=== PATIENT | female | born 1960 | race Caucasian/White ===

== ENCOUNTER 2017-09-21 15:01 | Emergency (ER) | payer BC ==
[2017-09-21 16:21] VITALS: BP 92/60
--- NOTE | 2017-09-21 16:46 | UC ---
Skin Complaint HPI - HPI Summary HPI Summary: Pt c/o "bites" on left side of buttocks. Pt states the areas are tender and a little pruritic. - History of Current Complaint Chief Complaint: UCRash Time Seen by Provider: 09/21/17 16:32 Stated Complaint: RASH Hx Obtained From: Patient ?: No Onset/Duration: Gradual Onset, Lasting Days Skin Exposure Onset/Duration: Days Ago Timing: Constant Onset Severity: Mild Current Severity: Mild Location: Discrete - left side buttock Character: Pruritus, Pain Aggravating Factor(s): Touch Alleviating Factor(s): Unknown Associated Signs & Symptoms: Positive: Tenderness - Allergy/Home Medications Allergies/Adverse Reactions: Allergies Allergy/AdvReac Type Severity Reaction Status Date / Time No Known Allergies Allergy Verified 09/21/17 16:09 Home Medications: Home Medications Estradiol TAB(NF) 1 mg PO DAILY 09/21/17 [History Confirmed 09/21/17] Hydrocodone/Acetamin 10325(NF [[place] 10/325 (NF)] 1 tab PO Q6H 09/21/17 [ History Confirmed 09/21/17] Levothyroxine TAB* [Synthroid TAB*] 125 mcg PO DAILY 09/21/17 [History Confirmed 09/21/17] Liothyronine TAB* [Cytomel TAB*] 5 mcg PO DAILY 09/21/17 [History Confirmed ] Oxymorphone (NF) [Opana (NF)] 10 mg PO Q6H 09/21/17 [History Confirmed 09/21/17] Oxymorphone ER (NF) [Opana ER (NF)] 40 mg PO Q12H 09/21/17 [History Confirmed ] Review of Systems Constitutional: Negative Skin: Rash Eyes: Negative ENT: Negative Respiratory: Negative Cardiovascular: Negative Gastrointestinal: Negative Genitourinary: Negative Motor: Negative Neurovascular: Negative Musculoskeletal: Negative Neurological: Negative Psychological: Negative Is Patient Immunocompromised?: No All Other Systems Reviewed And Are Negative: Yes PMH/Surg Hx/FS Hx/Imm Hx Previously Healthy: Yes - Surgical History Surgical History: Yes Surgery Procedure, Year, and Place: RIGHT HIP REPLACEMENT 2008. LABRUM REPAIR LEFT SHOULDER 2002. C SECTION 1984. HYSTERECTOMY 1998. ARTHROSCOPIC HIP SURGERY RIGHT 2007. GANGLION CYST RIGHT HAND 1990. D & C 1985. WISDOM TEETH - Family History Known Family History: Positive: Cardiac Disease - Social History Occupation: Employed Full-time Lives: With Family Alcohol Use: Occasionally Substance Use Type: Prescribed Smoking Status (MU): Light Every Day Tobacco Smoker Amount Used/How Often: 1/2 PPD Have You Smoked in the Last Year: Yes - Immunization History Most Recent Influenza Vaccination: Not the Season Physical Exam Triage Information Reviewed: Yes Appearance: Well-Appearing Vital Signs: Initial Vital Signs Temp 98.3 F 09/21/17 16:07 Pulse 64 09/21/17 16:07 Resp 16 09/21/17 16:07 BP 92/60 09/21/17 16:07 Pulse Ox 98 09/21/17 16:07 Eye Exam: Normal ENT Exam: Normal Dental Exam: Normal Neck exam: Normal Respiratory Exam: Other Respiratory: Positive: No respiratory distress Musculoskeletal Exam: Normal Neurological Exam: Normal Psychological Exam: Normal Skin Exam: Other - left buttocks, base of buttock, gluteal fold Course/Dx - Differential Diagnoses - Skin Complaint Differential Diagnoses: Cellulitis, Other - folliculitis - Diagnoses Provider Diagnoses: folliculitis Discharge - Discharge Plan Condition: Stable Disposition: HOME Patient Education Materials: Folliculitis (ED) Referrals: Rosalina Gilmore MD [Primary Care Provider] - If Needed
== END 2017-09-21 16:58 | disposition home or self-care (01) ==
LOC: UCCORT 15:01
DX: S30.860A Insect bite (nonvenomous) of lower back and pelvis, initial encounter (principal); L73.8 Other specified follicular disorders; F17.210 Nicotine dependence, cigarettes, uncomplicated; W57.XXXA Bitten or stung by nonvenomous insect and other nonvenomous arthropods, initial encounter
CPT/HCPCS: 99211; G0463

== ENCOUNTER 2017-12-17 08:23 | Emergency (ER) | payer BC ==
[2017-12-17 08:33] VITALS: BP 109/64
--- NOTE | 2017-12-17 08:39 | UC ---
Throat Pain/Nasal Arnoldo HPI - HPI Summary HPI Summary: c/o sore throat, fever, body aches, nasal congestion for a couple of days. - History of Current Complaint Chief Complaint: UCGeneralIllness Stated Complaint: ST/CHEST CONGESTION/AREVALO Time Seen by Provider: 12/17/17 08:31 Hx Obtained From: Patient Onset/Duration: Sudden Onset Severity: Moderate Cough: Nonproductive Associated Signs & Symptoms: Positive: Hoarseness, Nasal Discharge, Fever - Epiglottits Risk Factors Epiglottis Risk Factors: Negative - Allergies/Home Medications Allergies/Adverse Reactions: Allergies Allergy/AdvReac Type Severity Reaction Status Date / Time No Known Allergies Allergy Verified 12/17/17 08:33 Home Medications: Home Medications Acetaminophen TAB* [Tylenol TAB*] 325 mg PO Q4H PRN 12/17/17 [History Confirmed 12/17/17] PMH/Surg Hx/FS Hx/Imm Hx Previously Healthy: Yes - Surgical History Surgical History: Yes Surgery Procedure, Year, and Place: RIGHT HIP REPLACEMENT 2008. LABRUM REPAIR LEFT SHOULDER 2002. C SECTION 1984. HYSTERECTOMY 1998. ARTHROSCOPIC HIP SURGERY RIGHT 2007. GANGLION CYST RIGHT HAND 1990. D & C 1985. WISDOM TEETH - Family History Known Family History: Positive: Cardiac Disease - Social History Alcohol Use: Occasionally Substance Use Type: Prescribed Smoking Status (MU): Light Every Day Tobacco Smoker Amount Used/How Often: 1/2 PPD Have You Smoked in the Last Year: Yes - Immunization History Most Recent Influenza Vaccination: yes Review of Systems Constitutional: Fever, Chills, Fatigue Skin: Negative Eyes: Negative ENT: Sore Throat, Nasal Discharge, Sinus Congestion Respiratory: Cough Cardiovascular: Negative Gastrointestinal: Negative Genitourinary: Negative Motor: Negative Neurovascular: Negative Musculoskeletal: Myalgia Neurological: Headache Psychological: Negative Is Patient Immunocompromised?: No All Other Systems Reviewed And Are Negative: Yes Physical Exam Triage Information Reviewed: Yes Appearance: Ill-Appearing Vital Signs: Initial Vital Signs Temp 99.7 F 12/17/17 08:30 Pulse 76 12/17/17 08:30 Resp 18 12/17/17 08:30 BP 109/64 12/17/17 08:30 Pulse Ox 97 12/17/17 08:30 Vital Signs Reviewed: Yes ENT Exam: Normal ENT: Positive: Pharyngeal erythema, TM bulging - left, Tonsillar swelling, Hoarse voice Neck exam: Normal Respiratory Exam: Normal Cardiovascular Exam: Normal Abdominal Exam: Normal Musculoskeletal Exam: Normal Neurological Exam: Normal Psychological Exam: Normal Skin Exam: Normal Throat Pain/Nasal Course/Dx - Course Course Of Treatment: influenza swab done - results - negative. take abx as directed - discussed use and common side effects of me. increase fluid intake while on abx to prevent dehydration. tylenol or ibuprofen every 4-6 hours prn pain/fever - dose as directed on bottle. home tomorrow if fever persists - note given x 1 day. f/u pcp 1 week if symptoms not resolving or getting worse - Differential Dx/Diagnosis Provider Diagnoses: strep throat Discharge - Discharge Plan Condition: Good Disposition: HOME Prescriptions: Amoxicillin PO (*) [Amoxicillin 875 MG (*)] 875 mg PO BID 10 Days #20 tab Fluconazole [Diflucan 150 MG (NF)] 150 mg PO ONCE 2 Days #2 tab Patient Education Materials: Strep Throat (ED) Forms: *Work Release Referrals: Rosalina Gilmore MD [Primary Care Provider] - 1 Week
== END 2017-12-17 09:14 | disposition home or self-care (01) ==
LOC: UCCORT 08:23
DX: J02.0 Streptococcal pharyngitis (principal); Z72.89 Other problems related to lifestyle; Z72.0 Tobacco use
CPT/HCPCS: 87502; 99212; G0463

== ENCOUNTER 2019-02-02 12:46 | Emergency (ER) | payer BC ==
--- NOTE | 2019-02-02 13:19 | UC ---
Hand/Wrist HPI - HPI Summary HPI Summary: patient has had a paraonychia of the right thumb for the past 2 weeks, she has been saoking it but it is not getting better - History Of Current Complaint Stated Complaint: R THUMB SKIN CONCERN Time Seen by Provider: 02/02/19 13:08 Hx Obtained From: Patient ?: No Onset/Duration: Sudden Onset, Lasting Weeks Severity Initially: Mild Severity Currently: Mild Character Of Pain: Dull, Aching Alleviating Factor(s): Nothing Associated Signs And Symptoms: Positive: Swelling, Redness Related History: Dominant Hand Right - Allergies/Home Medications Allergies/Adverse Reactions: Allergies Allergy/AdvReac Type Severity Reaction Status Date / Time No Known Allergies Allergy Verified 02/02/19 13:13 PMH/Surg Hx/FS Hx/Imm Hx Previously Healthy: Yes - Surgical History Surgical History: Yes Surgery Procedure, Year, and Place: RIGHT HIP REPLACEMENT 2008. LABRUM REPAIR LEFT SHOULDER 2002. C SECTION 1984. HYSTERECTOMY 1998. ARTHROSCOPIC HIP SURGERY RIGHT 2007. GANGLION CYST RIGHT HAND 1990. D & C 1985. WISDOM TEETH - Family History Known Family History: Positive: Cardiac Disease - Social History Alcohol Use: Occasionally Substance Use Type: Prescribed Smoking Status (MU): Light Every Day Tobacco Smoker Amount Used/How Often: 1/2 PPD Have You Smoked in the Last Year: Yes - Immunization History Most Recent Influenza Vaccination: yes Review of Systems All Other Systems Reviewed And Are Negative: Yes Constitutional: Positive: Negative Skin: Positive: Other - redness and swellin Eyes: Positive: Negative ENT: Positive: Negative Respiratory: Positive: Negative Cardiovascular: Positive: Negative Gastrointestinal: Positive: Negative Genitourinary: Positive: Negative Motor: Positive: Negative Neurovascular: Positive: Negative Musculoskeletal: Positive: Negative Neurological: Positive: Negative Psychological: Positive: Negative Is Patient Immunocompromised?: No Physical Exam Triage Information Reviewed: Yes Appearance: Well-Appearing, Well-Nourished, Pain Distress Vital Signs Reviewed: Yes Eye Exam: Normal ENT Exam: Normal Dental Exam: Normal Neck exam: Normal Respiratory Exam: Normal Cardiovascular Exam: Normal Abdominal Exam: Normal Bowel Sounds: Positive: Present Musculoskeletal Exam: Normal Neurological Exam: Normal Psychological Exam: Normal Skin: Positive: Other - mild erythema, swelling and scabbing of the right thumb cuticle Hand/Wrist Course/Dx - Course Course Of Treatment: hx obtained, exam performed ,meds reviewed, treaetd for paronychia - Differential Dx/Diagnosis Differential Diagnosis/HQI/PQRI: Cellulitis, Infection, Paronychia Provider Diagnosis: Paronychia of finger Discharge - Sign-Out/Discharge Documenting (check all that apply): Patient Departure All imaging exams completed and their final reports reviewed: No Studies - Discharge Plan Condition: Stable Disposition: HOME Prescriptions: Cephalexin CAP* [Keflex CAP*] 500 mg PO BID #14 cap Patient Education Materials: Paronychia (ED) Referrals: Stanley Guidry MD [Primary Care Provider] - Additional Instructions: 1. continue with the warm water soaks 2. Take the medication as prescribed. 3. Follow up if not improving. - Billing Disposition and Condition Condition: STABLE Disposition: Home
[2019-02-02 13:24] VITALS: BP 106/71
== END 2019-02-02 13:30 | disposition home or self-care (01) ==
LOC: UCCORT 12:46
DX: L03.011 Cellulitis of right finger (principal); F17.210 Nicotine dependence, cigarettes, uncomplicated
CPT/HCPCS: 99212; G0463

== ENCOUNTER 2019-05-06 08:16 | Emergency (ER) | payer BC ==
[2019-05-06 08:31] VITALS: BP 108/58
--- NOTE | 2019-05-06 09:50 | UC ---
Abdominal Pain Female HPI - HPI Summary HPI Summary: 58 year old female with PMH + for hip replacement presents with cramping stomach pains, bloating, diarrhea, fatigue. Took OTC medications- pepto, immodium, no diarrhea x 24 hours. Continues to have pain in RUQ, concerned for GB disease. Denies nausea, fever, or chills. - History of Current Complaint Chief Complaint: UCGI Stated Complaint: DIARRHEA,RT SIDE PAIN Time Seen by Provider: 05/06/19 09:24 Hx Obtained From: Patient ?: No Onset/Duration: Sudden Onset, Lasting Days Severity Initially: Moderate Severity Currently: Moderate Pain Intensity: 4 Pain Scale Used: 0-10 Numeric Location: Discrete At: RUQ Allergies/Adverse Reactions: Allergies Allergy/AdvReac Type Severity Reaction Status Date / Time No Known Allergies Allergy Verified 05/06/19 08:32 Home Medications: Home Medications Bismuth Subsalicylate [Pepto-Bismol] 30 ml PO ONCE 05/06/19 [History Confirmed 05/06/19] Loperamide CAP* [Imodium CAP*] 1 tab PO ONCE 05/06/19 [History Confirmed ] PMH/Surg Hx/FS Hx/Imm Hx Previously Healthy: Yes - Surgical History Surgical History: Yes Surgery Procedure, Year, and Place: RIGHT HIP REPLACEMENT 2008. LABRUM REPAIR LEFT SHOULDER 2002. C SECTION 1984. HYSTERECTOMY 1998. ARTHROSCOPIC HIP SURGERY RIGHT 2007. GANGLION CYST RIGHT HAND 1990. D & C 1985. WISDOM TEETH - Family History Known Family History: Positive: Cardiac Disease - Social History Alcohol Use: Rare Substance Use Type: Prescribed Smoking Status (MU): Former Smoker Amount Used/How Often: 1/2 PPD Have You Smoked in the Last Year: Yes When Did the Patient Quit Smoking/Using Tobacco: 06/2018 - Immunization History Most Recent Influenza Vaccination: yes Review of Systems All Other Systems Reviewed And Are Negative: Yes Constitutional: Positive: Fatigue Gastrointestinal: Positive: Abdominal Pain, Vomiting, Diarrhea, Nausea Is Patient Immunocompromised?: No Physical Exam Triage Information Reviewed: Yes Appearance: Well-Appearing, No Pain Distress, Well-Nourished Vital Signs: Initial Vital Signs Temp 97.2 F 05/06/19 08:24 Pulse 68 05/06/19 08:24 Resp 16 05/06/19 08:24 BP 108/58 05/06/19 08:24 Pulse Ox 97 05/06/19 08:24 Vital Signs Reviewed: Yes Eyes: Positive: Conjunctiva Clear Respiratory: Positive: Chest non-tender, Lungs clear, Normal breath sounds, No respiratory distress, No accessory muscle use. Negative: Crackles, Rhonchi, Stridor, Wheezing Cardiovascular: Positive: RRR Abdomen Description: Positive: No Organomegaly, Soft, Distended - minimal. Negative: CVA Tenderness (R), CVA Tenderness (L), Hepatomegaly, Splenomegaly Musculoskeletal Exam: Normal Neurological Exam: Normal Abd Pain Female Course/Dx - Course Course Of Treatment: CT negative for GB disease, + coitis, fitting patients symptoms, bland diet, rest, increase fluids. - Differential Dx/Diagnosis Provider Diagnosis: Colitis Discharge - Sign-Out/Discharge Documenting (check all that apply): Patient Departure All imaging exams completed and their final reports reviewed: Yes - Discharge Plan Condition: Good Disposition: HOME Patient Education Materials: Diet for Stomach Ulcers and Gastritis (ED), Colitis (ED) Forms: *Work Release Referrals: Stanley Guidry MD [Primary Care Provider] - Additional Instructions: - Harrison diet for next 2-3 days to decrease abdominal pain - INcrease fluid intake to prevent dehydration due to loss of water from stools - Tylenol as needed for pain, avoid NSAIDS (motrin, alleve) to decrease intestinal irritation - REturn with increased pain, fever, chills, blood in stool - Billing Disposition and Condition Condition: GOOD Disposition: Home
== END 2019-05-06 10:27 | disposition home or self-care (01) ==
LOC: UCCORT 08:16
DX: K52.9 Noninfective gastroenteritis and colitis, unspecified (principal); R10.11 Right upper quadrant pain; Z96.641 Presence of right artificial hip joint; Z90.711 Acquired absence of uterus with remaining cervical stump; Z87.891 Personal history of nicotine dependence
CPT/HCPCS: 74176; 99211; G0463

== ENCOUNTER 2019-07-30 07:07 | Emergency (ER) | payer BC ==
--- OUTSIDE RECORDS SUMMARY | 2019-07-30 07:19 | XMS REPORT | Continuity of Care Document ---
:1960 External Reference #:[id number] Author Name Elliott Felder DO, MPH Address [address] [place] [address], [address] [place] [address] Care Team Providers Name Role Phone Stanley Guidry M.D. - Endocrinology, Care Team Information [employer] Diabetes & Metabolism Problems Description No Information Available Social History Type Date Description Comments Sex Unknown Cigarette Use Current Cigarette Smoker 1 Pack Daily ETOH Use Consumes 3 pints of liquor per week Tobacco Use Start: Unknown Patient is a current smoker, smokes every day Smoking Status Reviewed: 07/24/19 Patient is a current smoker, smokes every day Allergies, Adverse Reactions, Alerts Description No Known Drug Allergies Medications Active Medications SIG Qnty Indications Ordering Date Provider Hydrocodone-Acetamino si by mouth 120tabs Elliott Felder, 02/27/2017 phen every 6 hours as DO, MPH 10-325mg Tablets directed chronic pain patient Oxymorphone HCL ER si by mouth 60tabs Elliott Felder, 02/27/2017 40mg every 12 hours as DO, MPH Tablets ER 12HR directed chronic pain Oxymorphone HCL 1 by mouth every 120tabs Elliott Felder, 02/27/2017 10mg 6 hours as DO, MPH Tablets directed chronic pain patient Synthroid Si PO qd 30tabs Unknown 125mcg Tablets Estradiol 1 by mouth daily Unknown 0.5mg Tablets Valacyclovir HCL One By Mouth Unknown 500mg Daily Tablets Depakote ER si by mouth Unknown 250mg every day as Tablets ER 24HR directed Immunizations Description No Information Available Vital Signs Date Vital Result Comment 07/24/2019 9:57am BP Systolic 122 mmHg BP Diastolic 74 mmHg Heart Rate 78 /min Respiratory Rate 20 /min Height 64 inches 5'4" Weight 154.00 lb Pain Level 6 Pain at this time. Pain Level With Medicine 5 on average with meds Pain Level Without Medicine 9 without meds BMI (Body Mass Index) 26.4 kg/m2 06/24/2019 9:51am BP Systolic 124 mmHg BP Diastolic 74 mmHg Heart Rate 72 /min Respiratory Rate 20 /min Height 64 inches 5'4" Weight 156.00 lb Pain Level 7 Pain at this time. Pain Level With Medicine 6 on average with meds Pain Level Without Medicine 9 without meds BMI (Body Mass Index) 26.8 kg/m2 Results Description No Information Available Procedures Date Code Description Status 03/21/2019 09229 Therapeutic, Prophylactic Or Diagnostic Injection Subq/Im Completed 02/21/2019 90494 Therapeutic, Prophylactic Or Diagnostic Injection Subq/Im Completed Medical Devices Description No Information Available Encounters Type Date Location Provider Dx Diagnosis Office Visit 06/24/2019 Main Office as Of Elliott Felder DO G89.29 Other chronic pain 9:45a 12/28/13 MPH M54.5 Low back pain M25.551 Pain in right hip M25.552 Pain in left hip Z79.891 snf (current) use of opiate analgesic Office Visit 05/24/2019 9:30a Main Office as Elliott Felder G89.29 Other chronic Of 12/28/13 DO, MPH pain M25.552 Pain in left hip M25.551 Pain in right hip M54.5 Low back pain R53.83 Other fatigue 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 Office Visit 04/25/2019 3:30p Main Office as Elliott Felder G89.29 Other chronic Of 12/28/13 DO, MPH pain M54.5 Low back pain M25.552 Pain in left hip M25.551 Pain in right hip 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 Office Visit 03/21/2019 3:15p Main Office as Elliott Felder G89.29 Other chronic Of 12/28/13 DO, MPH pain M25.551 Pain in right hip M25.552 Pain in left hip M54.5 Low back pain Z79.891 snf (current) use of opiate analgesic R53.83 Other fatigue Office Visit 02/21/2019 3:30p Main Office as FelderElliott francis, G89.29 Other chronic Of 12/28/13 DO, MPH pain M54.5 Low back pain M25.551 Pain in right hip M25.552 Pain in left hip R53.83 Other fatigue Z79.891 snf (current) use of opiate analgesic Assessments Date Code Description Provider 07/24/2019 G89.29 Other chronic pain Felder, Elliott, DO, MPH 07/24/2019 M54.5 Low back pain Felder, Elliott, DO, MPH 07/24/2019 M25.551 Pain in right hip Felder, Elliott, DO, MPH 07/24/2019 M25.552 Pain in left hip Felder, Elliott, DO, MPH 07/24/2019 M25.561 Pain in right knee Felder, Elliott, DO, MPH 07/24/2019 R53.83 Other fatigue Felder, Elliott, DO, MPH 07/24/2019 Z79.891 snf (current) use of opiate analgesic Felder, Elliott , DO, MPH 06/24/2019 G89.29 Other chronic pain Felder, Elliott, DO, MPH 06/24/2019 M54.5 Low back pain Felder, Elliott, DO, MPH 06/24/2019 M25.551 Pain in right hip Felder, Elliott, DO, MPH 06/24/2019 M25.552 Pain in left hip Felder, Elliott, DO, MPH 06/24/2019 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 Felder, Elliott , DO, MPH 05/24/2019 G89.29 Other chronic pain Felder, Elliott, DO, MPH 05/24/2019 M25.552 Pain in left hip Felder, Elliott, DO, MPH 05/24/2019 M25.551 Pain in right hip Felder, Elliott, DO, MPH 05/24/2019 M54.5 Low back pain Felder, Elliott, DO, MPH 05/24/2019 R53.83 Other fatigue Felder, Elliott, DO, MPH 05/24/2019 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 Felder, Elliott , DO, MPH 04/25/2019 G89.29 Other chronic pain Felder, Elliott, DO, MPH 04/25/2019 M54.5 Low back pain Felder, Elliott, DO, MPH 04/25/2019 M25.552 Pain in left hip Felder, Elliott, DO, MPH 04/25/2019 M25.551 Pain in right hip Felder, Elliott, DO, MPH 04/25/2019 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 Felder, Elliott , DO, MPH 03/21/2019 G89.29 Other chronic pain Felder, Elliott, DO, MPH 03/21/2019 M25.551 Pain in right hip Felder, Elliott, DO, MPH 03/21/2019 M25.552 Pain in left hip Felder, Elliott, DO, MPH 03/21/2019 M54.5 Low back pain Felder, Elliott, DO, MPH 03/21/2019 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 Felder, Elliott , DO, MPH 03/21/2019 R53.83 Other fatigue Felder, Elliott, DO, MPH 02/21/2019 G89.29 Other chronic pain Felder, Elliott, DO, MPH 02/21/2019 M54.5 Low back pain Felder, Elliott, DO, MPH 02/21/2019 M25.551 Pain in right hip Felder, Elliott, DO, MPH 02/21/2019 M25.552 Pain in left hip Felder, Elliott, DO, MPH 02/21/2019 R53.83 Other fatigue Felder, Elliott, DO, MPH 02/21/2019 Z79.891 snf (current) use of opiate analgesic Felder, Elliott , DO, MPH Plan of Treatment Future Appointment(s):08/22/2019 3:45 pm - FelderElliott francis DO, MPH at Main Office as Of 12/28/1407 - Elliott Felder DO, MPHG89.29 Other chronic painComments:Chronic. Symptoms and complaints discussed and reviewed today. No significant changes in physical findings. Continue current medical pain management.M54.5 Low back painComments:Chronic. Symptoms and complaints discussed and reviewed today.No changes in physical findings. Patient is stable and comfortable when current medical therapy is rendered.M25.551 Pain in right hipComments:Chronic. Symptoms and complaints discussed and reviewed today. No significant changes in physical findings. Continue current medical pain management.M25.552 Pain in left hipComments:Chronic.Symptoms and complaints discussed and reviewed today. No significant changes in physical findings. Continue current medical pain management.M25.561 Pain in right kneeComments: Continue current medical pain management.R53.83 Other fatigueComments:Symptoms and complaints discussed and reviewed today. No significant changes in physical findings. Continue current medical pain management. B12 injection administered after patient evaluated. 1ml IM for fatigue. (See Consent for injection-B12 document for lot number and expiration date.)Z79.891 snf ( current) use of opiate analgesicNew Labs:Urine Drug Screen, Ordered: Comments:Urine drug screen sample taken today to monitor opiate use and to monitor use of illicit substances.Will discuss results at next appointment.The following tests were ordered:6 AM, AMPH, ALDO, BON, BUP, CARIS, COCM, COT, ETG , FENT, MCSHSG, OPI, OXY, PCP, TAPEN, XTSY, ZOLP. A urine drug test (UDT ) was ordered for this patient and collected on site today. Creatinine has been ordered as well for specimen validity, not for kidney function. Preliminary UDT results are not final and should not be used to determine patient care or plan of treatment. Initially a qualitative immunoassay screen will be done. Any inconsistent or positive findings will be further tested with a more comprehensive quantitative confirmation LCMS study. It is part of the treatment process of prescribing controlled substances and is considered standard of care.AllComments:Continue current medical pain management; injection therapy, osteopathic manipulation, PT / modalities, and consults as needed to manage chronic pain.Non - opioid pain management discussed and optionsdiscussed.Side effects discussed; anticipatory guidance given. Patient clearly understand and agree with all medical treatments and suggestions. All medicines prescribed are adequate and appropriate for this patient's complaint of pain, medical history, physical, and personal goals.Goals of Treatment are to provide adequate and appropriate multidisciplinary medical pain management to increase/ maintain patient's quality of life and functionality while maintaining satisfactory side effect profile andminimizing medical terminologist end-organ damage. Importance of regular nutrition throughout the day discussed.Activity as toleratedContinue with PCP Functional Status Description No Information Available Mental Status Description No Information Available Referrals Description No Information Available
[2019-07-30 07:29] VITALS: BP 105/53
--- NOTE | 2019-07-30 08:10 | UC ---
Knee Pain HPI - HPI Summary HPI Summary: right knee pain x 1 week s/p fall one week ago , was seen [facility] one week ago normal xray cont. to have pain and swelling, not improving pain is 7 out of 10 , worse with standing and walking better with rest, and ice - History of Current Complaint Chief Complaint: UCLowerExtremity Stated Complaint: RIGHT KNEE RECHECK Time Seen by Provider: 07/30/19 07:20 Hx Obtained From: Patient Onset/Duration: Sudden Onset, Lasting Days - 7, Still Present Severity Initially: Moderate Severity Currently: Moderate Pain Intensity: 5 Pain Scale Used: 0-10 Numeric Character: Aching Aggravating Factor(s): Movement, Weight Bearing, Prolonged Standing, Stairs Alleviating Factor(s): Rest, Cold Associated Signs And Symptoms: Positive: Swelling, Weakness. Negative: Bruising , Numbness, Tingling Able to Bear Weight: Yes - Allergies/Home Medications Allergies/Adverse Reactions: Allergies Allergy/AdvReac Type Severity Reaction Status Date / Time No Known Allergies Allergy Verified 07/30/19 07:30 Home Medications: Home Medications Ibuprofen 600 mg PO ONCE 07/30/19 [History Confirmed 07/30/19] PMH/Surg Hx/FS Hx/Imm Hx - Additional Past Medical History Additional PMH: chronic pain syndrome arthritis Endocrine History: Hypothyroidism - Surgical History Surgical History: Yes Surgery Procedure, Year, and Place: RIGHT HIP REPLACEMENT 2008. LABRUM REPAIR LEFT SHOULDER 2002. C SECTION 1984. HYSTERECTOMY 1998. ARTHROSCOPIC HIP SURGERY RIGHT 2007. GANGLION CYST RIGHT HAND 1990. D & C 1985. WISDOM TEETH - Family History Known Family History: Positive: Cardiac Disease, Hypertension - Social History Alcohol Use: Occasionally Substance Use Type: Marijuana, Prescribed Smoking Status (MU): Never Smoked Tobacco Type: Cigarettes Amount Used/How Often: 1/2 ppd Have You Smoked in the Last Year: Yes When Did the Patient Quit Smoking/Using Tobacco: JUN 2018 - Immunization History Most Recent Influenza Vaccination: yes Review of Systems All Other Systems Reviewed And Are Negative: Yes Constitutional: Positive: Negative Skin: Positive: Negative Eyes: Positive: Negative Is Patient Immunocompromised?: No Physical Exam Triage Information Reviewed: Yes Appearance: Well-Appearing, Well-Nourished, Pain Distress Vital Signs: Initial Vital Signs Temp 98.4 F 07/30/19 07:23 Pulse 56 07/30/19 07:23 Resp 16 07/30/19 07:23 BP 105/53 07/30/19 07:23 Pulse Ox 97 07/30/19 07:23 Vital Signs Reviewed: Yes Eye Exam: Normal Eyes: Positive: Conjunctiva Clear ENT: Positive: Normal ENT inspection, Hearing grossly normal, Pharynx normal Neck: Positive: Supple, Nontender, No Lymphadenopathy Respiratory: Positive: Chest non-tender, Lungs clear, Normal breath sounds Cardiovascular: Positive: RRR, No Murmur, Pulses Normal Musculoskeletal: Positive: Other: - right knee: + swelling, effusion , diffuse tenderness, pain with flexion and extension stabel ligaments , gaurding with Meg Knee Pain Course/Dx - Differential Dx/Diagnosis Provider Diagnosis: Effusion, right knee Discharge ED - Sign-Out/Discharge Documenting (check all that apply): Patient Departure All imaging exams completed and their final reports reviewed: No Studies - Discharge Plan Condition: Stable Disposition: HOME Patient Education Materials: Swollen Knee Joint (ED) Forms: *Work Release Referrals: Stanley Guidry MD [Primary Care Provider] - Eleno Cummings MD [Medical Doctor] - As Soon As Possible - Billing Disposition and Condition Condition: STABLE Disposition: Home
== END 2019-07-30 08:04 | disposition home or self-care (01) ==
LOC: UCCORT 07:07
DX: M25.461 Effusion, right knee (principal); Z51.89 Encounter for other specified aftercare; Z87.891 Personal history of nicotine dependence
CPT/HCPCS: 99213; G0463

== ENCOUNTER → 2019-09-11 12:11 | Day surgery (SDC) | payer BC ==
[~2019-09-11 12:11] MED LIST: Acetaminophen TAB* 325 MG PO PRN; Buffered Lidocaine 1% SYRIN* 1 ML/SYRINGE INTRADERM ONE; Dexamethasone IV* 4 MG/ML 1 ML (4 MG) ONE; DiMENhydriNATE IV* 50 MG/ML VIAL IV PUSH PRN; HYDROmorphone INJ1* 1 MG/ML SYRINGE ONE; Ketorolac INJ* 30 MG/ML 1 ML VIAL IV PRN; Ketorolac INJ* 30 MG/ML 1 ML VIAL ONE; Lactated Ringers 1000 ML Bag* 1,000 ML IV SCH; Lidocaine 1% w EPI 1:200,000* SDV 30 ML VIAL ONE; Lidocaine 2% PF * 5 ML VIAL ONE; Midazolam* 1 MG/ML 2 ML VIAL (2 MG) ONE; Naloxone* 0.4 MG/ML 1 ML VIAL IV PRN; Ondansetron INJ* 2 MG/ML VIAL ONE; Propofol* 10 MG/ML 20 ML BTL ONE; Ropivacaine 0.2% * 2 MG/ML VIAL ONE; ceFAZolin 2 GM PREMIX in ORs 2 GM/50 ML BAG ONE; fentaNYL* 50 MCG/ML 2 ML VIAL (100 MCG VIAL) IV PRN; fentaNYL* 50 MCG/ML 2 ML VIAL (100 MCG VIAL) ONE; oxyCODONE/Acetamin 5/325 MG* TAB ONE
[2019-09-11] MEDS: oxyCODONE/Acetamin 5/325 MG* TAB PO PRN ×2 (16:45→17:02)
[2019-09-11] MEDS: HYDROmorphone INJ1* 1 MG/ML SYRINGE IV PRN ×2 (16:50→17:01)
[2019-09-11 17:25] VITALS: BP 144/62
--- NOTE | 2019-09-14 01:09 | OP ---
DATE OF OPERATION: 09/11/19 [facility] DATE OF : 60 SURGEON: Shay Trejo MD. CORK PRESSING MACHINE OPERATOR: MARIBEL Humphrey. An news production assistant was needed for the entirety of the case to help with positioning, retraction, and for the possibility of root repair. PRE-OP DIAGNOSIS: Right knee medial meniscus root tear. POST-OP DIAGNOSIS: Right knee medial meniscus root tear. OPERATIVE PROCEDURE: Right knee arthroscopy with partial meniscectomy and chondroplasty of patellofemoral joint. COMPLICATIONS: None. ESTIMATED BLOOD LOSS: Minimal. INDICATIONS: Pippa Izquierdo is a 58-year-old female with persistent pain. She had an injury to her knee in June; she had a fall. She has had persistent catching and locking in her knee. She has failed conservative management and elected to proceed with surgical treatment. Because of her activity level and age, we did talk about a root repair as she was very concerned about a partial meniscectomy causing an increased risk in her arthritis. After extensive discussion of the risks and benefits of operative versus nonoperative treatment , she has elected to proceed with surgical treatment. The risks included, but were not limited to bleeding, infection, damage to nerves; vessels; surrounding structures, wound nonhealing, persistent pain, need for surgery, scarring, stiffness, incomplete relief of symptoms, and risks of anesthesia. DESCRIPTION OF PROCEDURE: The patient was greeted in the preoperative area by the attending surgeon. Correct extremity was marked and consent was confirmed. The patient was brought back to the operating suite and placed in the supine position on the operating table. She then underwent general anesthesia with LMA intubation, after which she was appropriately positioned on the bed. An unsterile tourniquet was placed high on the proximal thigh and a lateral post was positioned. The leg was then prepped and draped in the usual sterile fashion beginning with chlorhexidine soap, scrub, and alcohol wipe and a final prep of ChloraPrep. After appropriate surgical pause indicating side, site, and procedure and administration of antibiotics, the knee was intraarticularly injected with 1% lidocaine with epi. The anterolateral portal was made sharply with the 11- blade. The scope was introduced and the joint was examined. There was abundant synovitis that was present and an anteromedial portal was then made in an outside-in fashion. Shaver was used to debride back the abundant fat pad that was present. The ACL was intact. The PCL was intact. There were some grade 2 changes of the medial compartment and some arthritis as well as a medial meniscus tear. The root appeared to be attached posteriorly, at least in part, but there was an unstable flap, which was debrided back using the emil and biters, after which attention was directed laterally. There was mild fraying of the meniscus. This was debrided back using the shaver. The patellofemoral joint was examined. There was an area under the patella that had some grade 2 chondrosis, which was debrided back using shaver. Once the synovitis was removed including plica, the gutters were intact and found to have no loose debris. The knee was then thoroughly lavaged of remaining loose debris. The wound was then copiously irrigated with sterile saline. The portals were closed with 3-0 nylon in interrupted fashion. Sterile dressings were applied. The wound was injected superficially and intraarticularly with 0.2% ropivacaine. Sterile dressings were applied and Cryo/Cuff, and she was awoken from anesthesia and transferred to the PACU in stable condition. POSTOPERATIVE PLAN: She will be weightbearing as tolerated, range of motion as tolerated, and I will see the patient back in 10 to 14 days. DVT prophylaxis was considered but deferred due to no previous or personal history. [id number]/[facility] #: [id number] MTDD
== END | disposition home or self-care (01) ==
LOC: OR 12:11
PROVIDERS: ATTEND Orthopaedic Surgery
DX: S83.241A Other tear of medial meniscus, current injury, right knee, initial encounter (principal); W19.XXXA Unspecified fall, initial encounter; Y92.9 Unspecified place or not applicable; E03.9 Hypothyroidism, unspecified; G47.33 Obstructive sleep apnea (adult) (pediatric); M19.90 Unspecified osteoarthritis, unspecified site; F31.9 Bipolar disorder, unspecified; Z87.891 Personal history of nicotine dependence
CPT/HCPCS: A9270-GY; J0690; J1100; J1170; J1885; J2001; J2250; J2405; J2704; J2795; J3010

== ENCOUNTER 2020-01-12 10:04 | Emergency (ER) | payer BC ==
--- OUTSIDE RECORDS SUMMARY | 2020-01-12 10:20 | XMS REPORT | Continuity of Care Document ---
:1960 External Reference #:[id number] Author Name Elliott Felder DO, MPH Address [address] [place] [address], [address] [place] [address] Care Team Providers Name Role Phone Stanley Guidry M.D. - Endocrinology, Care Team Information Manager Behavioral Diabetes & Metabolism Problems Description No Information Available Social History Type Date Description Comments Sex Unknown Cigarette Use Current Cigarette Smoker 1 Pack Daily ETOH Use Consumes 3 pints of liquor per week Tobacco Use Start: Unknown Patient is a current smoker, smokes every day Smoking Status Reviewed: 11/18/19 Patient is a current smoker, smokes every day Allergies, Adverse Reactions, Alerts Description No Known Drug Allergies Medications Active Medications SIG Qnty Indications Ordering Date Provider Xtampza ER 1 by mouth every 60units Elliott Felder, 09/17/2019 36mg C12a 12 hours DO, MPH Hydrocodone-Acetamino si by mouth 120tabs Elliott Felder, 02/27/2017 phen every 6 hours as DO, MPH 10-325mg Tablets directed chronic pain patient Oxymorphone HCL 1 by mouth every 120tabs Elliott Felder, 02/27/2017 10mg 6 hours as DO, MPH Tablets directed chronic pain patient Synthroid Si PO qd 30tabs Unknown 125mcg Tablets Estradiol 1 by mouth daily Unknown 0.5mg Tablets Valacyclovir HCL One By Mouth Unknown 500mg Daily Tablets Depakote ER si by mouth Unknown 250mg every day as Tablets ER 24HR directed Modafinil sig bid 60tabs Unknown 100mg Tablets History Medications Oxymorphone HCL ER 2 by mouth every 120tabs Elliott Felder, 08/23/2019 - 20mg 12 hours ud. CONNOR MARC 09/17/2019 Tablets ER 12HR chronic pain. Immunizations Description No Information Available Vital Signs Date Vital Result Comment 11/18/2019 3:04pm BP Systolic 120 mmHg BP Diastolic 78 mmHg Heart Rate 74 /min Respiratory Rate 20 /min Height 64 inches 5'4" Weight 164.00 lb Pain Level 3 Pain at this time. Pain Level With Medicine 3 on average with meds Pain Level Without Medicine 9 without meds BMI (Body Mass Index) 28.1 kg/m2 10/21/2019 2:57pm BP Systolic 122 mmHg BP Diastolic 76 mmHg Heart Rate 74 /min Respiratory Rate 20 /min Height 64 inches 5'4" Weight 154.00 lb Pain Level 6 Pain at this time. Pain Level With Medicine 5 on average with meds Pain Level Without Medicine 9 without meds BMI (Body Mass Index) 26.4 kg/m2 Results Description No Information Available Procedures Date Code Description Status 09/17/2019 91471 Therapeutic, Prophylactic Or Diagnostic Injection Subq/Im Completed 08/22/2019 84805 Therapeutic, Prophylactic Or Diagnostic Injection Subq/Im Completed 07/24/2019 99741 Therapeutic, Prophylactic Or Diagnostic Injection Subq/Im Completed Medical Devices Description No Information Available Encounters Type Date Location Provider Dx Diagnosis Office Visit 10/21/2019 Main Office as Of Elliott Felder DO G89.29 Other chronic pain 3:00p 12/28/13 MPH M25.552 Pain in left hip M25.551 Pain in right hip M54.5 Low back pain Z79.891 jail (current) use of opiate analgesic Office Visit 09/17/2019 4:00p Main Office as Elliott Felder G89.29 Other chronic Of 12/28/13 CONNOR MARC pain M54.5 Low back pain M25.552 Pain in left hip M25.551 Pain in right hip M25.561 Pain in right knee Z79.891 jail (current) use of opiate analgesic R53.83 Other fatigue Office Visit 08/22/2019 3:45p Main Office as Elliott Felder G89.29 Other chronic Of 12/28/13 DO, MPH pain M25.551 Pain in right hip M25.552 Pain in left hip M54.5 Low back pain R53.83 Other fatigue 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29 Other chronic pain Felder, Elliott, DO, MPH 11/18/2019 M54.5 Low back pain Felder, Elliott, DO, MPH 11/18/2019 M25.561 Pain in right knee Felder, Elliott, DO, MPH 11/18/2019 M25.551 Pain in right hip Felder, Elliott, DO, MPH 11/18/2019 M25.552 Pain in left hip Felder, Elliott, DO, MPH 11/18/2019 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 Felder, Elliott , DO, MPH 10/21/2019 G89.29 Other chronic pain Felder, Elliott, DO, MPH 10/21/2019 M25.552 Pain in left hip Felder, Elliott, DO, MPH 10/21/2019 M25.551 Pain in right hip Felder, Elliott, DO, MPH 10/21/2019 M54.5 Low back pain Felder, Elliott, DO, MPH 10/21/2019 Z79.891 jail (current) use of opiate analgesic Felder, Elliott , DO, MPH 09/17/2019 G89.29 Other chronic pain Felder, Elliott, DO, MPH 09/17/2019 M54.5 Low back pain Felder, Elliott, DO, MPH 09/17/2019 M25.552 Pain in left hip Felder, Elliott, DO, MPH 09/17/2019 M25.551 Pain in right hip Felder, Elliott, DO, MPH 09/17/2019 M25.561 Pain in right knee Felder, Elliott, DO, MPH 09/17/2019 Z79.891 jail (current) use of opiate analgesic Felder, Elliott , DO, MPH 09/17/2019 R53.83 Other fatigue Felder, Elliott, DO, MPH 08/22/2019 G89.29 Other chronic pain Felder, Elliott, DO, MPH 08/22/2019 M25.551 Pain in right hip Felder, Elliott, DO, MPH 08/22/2019 M25.552 Pain in left hip Felder, Elliott, DO, MPH 08/22/2019 M54.5 Low back pain Felder, Elliott, DO, MPH 08/22/2019 R53.83 Other fatigue Felder, Elliott, DO, MPH 08/22/2019 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 Felder, Elliott , DO, MPH 07/24/2019 G89.29 Other chronic pain Felder, Elliott, DO, MPH 07/24/2019 M54.5 Low back pain Felder, Elliott, DO, MPH 07/24/2019 M25.551 Pain in right hip Felder, Elliott, DO, MPH 07/24/2019 M25.552 Pain in left hip Felder, Elliott, DO, MPH 07/24/2019 M25.561 Pain in right knee Felder, Elliott, DO, MPH 07/24/2019 R53.83 Other fatigue Felder, Elliott, DO, MPH 07/24/2019 Z79.891 jail (current) use of opiate analgesic Felder, Elliott , DO, MPH 06/24/2019 G89.29 Other chronic pain Felder, Elliott, DO, MPH 06/24/2019 M54.5 Low back pain Felder, Elliott, DO, MPH 06/24/2019 M25.551 Pain in right hip Elliott Felder DO MPH 06/24/2019 M25.552 Pain in left hip Elliott Felder DO MPH 06/24/2019 Z79.891 jail (current) use of opiate analgesic Elliott Felder DO MPH Plan of Treatment Future Appointment(s):12/17/2019 3:30 pm - Elliott Felder DO, MPH at Main Office as Of 12/28/1411 - Elliott Felder DO, MPHG89.29 Other chronic painComments:Chronic. Symptoms and complaints discussed and reviewed today. No significant changes in physical findings. Continue current medical pain management.M54.5 Low back painComments:Chronic. Symptoms and complaints discussed and reviewed today.No changes in physical findings. Patient is stable and comfortable when current medical therapy is rendered.M25.561 Pain in right kneeComments:Chronic.Symptoms and complaints discussed and reviewed today. No significant changes in physical findings. Continue current medical pain management.M25.551 Pain in right hipComments:Chronic. Symptoms and complaints discussed and reviewed today. No significant changes in physical findings. Continue current medical pain management.M25.552 Pain in left hipComments: Chronic. Symptoms and complaints discussed and reviewed today. No significant changes in physical findings. Continue current medical pain management.Z79.891 jail (current) use of opiate analgesicNew Labs:Urine Drug Screen, Ordered: 11/18/19Comments:Urine drug screen sample taken today to monitor opiate use and to monitor use of illicit substances.Will discuss results at next appointment.The following tests were ordered:6 AM, AMPH, ALDO, BON, BUP, CARIS , COCM, ETG, FENT, MCSHSG, OPI, OXY, PCP, TAPEN, XTSY, ZOLP. A urine drug test (UDT) was ordered for this patient and collected on site today. Creatinine has been ordered as well for specimen validity, not for kidney function. Preliminary UDT results are not final and should not be used to determine patient care or plan of treatment. Initially a qualitative immunoassay screen will bedone. Any inconsistent or positive findings will be further tested with a more comprehensive quantitative confirmation LCMS study. It is part of the treatment process of prescribing controlled substances and is considered standard of care.AllComments:Continue current medical pain management ; injection therapy, osteopathic manipulation, PT / modalities, [...] while maintaining satisfactory side effect profile andminimizing extermination supervisor end-organ damage. Importance of regular nutrition throughout the day discussed.Activity as toleratedContinue with PCP Functional Status Description No Information Available Mental Status Description No Information Available Referrals Description No Information Available
--- OUTSIDE RECORDS SUMMARY | 2020-01-12 10:20 | XMS REPORT | Continuity of Care Document ---
:1960 External Reference #:[id number] Author Name Eulogio Mueller MD (transmitted by agent of provider Nazia Diaz) Address [address] [place] [id number] Care Team Providers Name Role Phone Stanley Guidry MD - Endocrinology, Care Team Information Field Ring Assembler [phone] Diabetes & Metabolism Problems Active Problems Provider Date Displacement of lumbar intervertebral disc Patrick Seay M.D. Onset: 2016 without myelopathy Spinal stenosis of lumbar region Patrick Seay M.D. Onset: 08/02/2017 Lumbar spondylolisthesis Pablito Manzo MD Onset: 10/13/2017 Knee joint effusion Shay Trejo MD Onset: 08/15/2019 Current tear of medial cartilage AND/OR Shay Trejo MD Onset: 08/15/2019 meniscus of knee Social History Type Date Description Comments Sex Unknown Tobacco Use Start: Unknown End: Former Cigarette Smoker Unknown 1 Pack Daily Cigarette Use Pack Years - 15 Smoking Status Reviewed: 12/26/19 Former Cigarette Smoker 1 Pack Daily ETOH Use Occasionally consumes 1 drink per week alcohol Recreational Drug Use Denies Drug Use Tobacco Use Start: Unknown End: Patient is a former Unknown smoker Exercise Type/Frequency Exercises regularly Allergies, Adverse Reactions, Alerts Description No Known Drug Allergies Medications Active Medications SIG Qnty Indications Ordering Provider Date Diclofenac Sodium take 1 tablet 60tabs S83.241A Shay Trejo MD 2018 75mg twice a day Tablets DR with food Estradiol Take One Tablet 30tabs Rosalina Gilmore 07/27/2016 0.5mg Tablets By Mouth Chun LMD Sal Day Synthroid 1 by mouth Unknown 125mcg Tablets every day Hydrocodone-Acetaminop 1 by mouth 120tabs Rosalina Gilmore hen every 6 hours MD Orquidea 10-325mg Tablets Divalproex Sodium 1 tab by mouth Stanley Guidry MD 250mg bid Tablets DR Daily Multivitamin 1 daily by Unknown mouth Capsules Biotin 1 by mouth once Unknown 5000mcg Capsules a day Xtampza ER 1 by mouth Unknown 9mg C12a twice per day Modafinil 1 tablet by Unknown 100mg Tablets mouth twice per day History Medications Oxycodone HCL 1 tabs by mouth 12tabs Shay Trejo MD 09/11/2019 - 5mg Tablets every 4-6 hours as 09/23/2019 needed post op pain in addition to chronic pain meds. Short term script Ketorolac Tromethamine take 1 by mouth 20tabs Shay Trejo MD 2018 - every 6 hours x 5 09/24/2019 10mg Tablets days. first dose given in or and tolerated well Medications Administered in Office Medication SIG Qnty Indications Ordering Provider Date Injection Hyaluronan Or Eulogio Mueller MD 12/19/2019 Derivative, Euflexxa Per Dose Injection Injection Hyaluronan Or Eulogio Mueller MD 12/12/2019 Derivative, Euflexxa Per Dose Injection No Injection Shay Trejo MD 11/12/2019 Injection Triamcinolone (Kenalog) Shay Trejo MD 11/12/2019 Injection Depomedrol 40MG Edie Barahona M.D. 02/22/2017 Injection Immunizations Description No Information Available Vital Signs Date Vital Result Comment 12/26/2019 3:49pm Height 64 inches 5'4" Heart Rate 69 /min BP Systolic 120 mmHg BP Diastolic 62 mmHg Respiratory Rate 18 /min Body Temperature 98.0 F Pain Level 1 12/19/2019 3:57pm Height 64 inches 5'4" Heart Rate 70 /min BP Systolic 118 mmHg BP Diastolic 70 mmHg Respiratory Rate 18 /min Body Temperature 98.0 F Pain Level 4 Results Description No Information Available Procedures Date Code Description Status 12/26/2019 Inject/Drain Joint/Bursa Major W/O US Completed 12/19/2019 Inject/Drain Joint/Bursa Major W/O US Completed 12/12/2019 Inject/Drain Joint/Bursa Major W/O US Completed 11/12/201990077 Inj/Aspir Major JT Or Bursa W/ US Completed 09/11/2019 58185 Arthroscopy,Knee,Meniscectomy Medial Or Lateral Completed 09/11/2019 53857 Arthroscopy,Knee,Meniscectomy Medial Or Lateral Completed Medical Devices Description No Information Available Encounters Type Date Location Provider Dx Diagnosis Office Visit 09/23/2019 Pulmonology Filiberto Irizarry G47.33 Obstructive sleep 8:00a [facility] ap[facility] (adult) [facility] (pediatric) R53.83 Other fatigue Office Visit 09/05/2019 3:15p [facility] Shay Trejo, S83.241A Oth tear of at Viral RICE medial meniscus, current injury, r knee, init Office Visit 08/15/2019 8[facility]a [facility], M25.461 Effusion, right at [facility] RICE knee S83.241A Oth tear of medial meniscus, current injury, r knee, init Office Visit 07/31/2019 11:30a [facility] Eleno Campos M25.461 Effusion , right at Maurice Cummings MD knee M23.91 Unspecified internal derangement of right knee Office Visit 07/03/2019 Pulmonology Filiberto Irizarry G47.33 Obstructive sleep 11:00a [facility] apnea (adult) [facility] (pediatric) R53.83 Other fatigue Assessments Date Code Description Provider 12/26/2019 M17.11 Unilateral primary osteoarthritis, right Eulogio Mueller MD knee 12/26/2019 S83.241D Other tear of medial meniscus, current Eulogio Mueller MD injury, right knee, subsequent encounter 12/26/2019 M25.461 Effusion, right knee Eulogio Mueller MD 12/19/2019 S83.241D Other tear of medial meniscus, current Eulogio Mueller MD injury, right knee, subsequent encounter 12/19/2019 M17.11 Unilateral primary osteoarthritis, right Eulogio Mueller MD knee 12/19/2019 M25.461 Effusion, right knee Eulogio Mueller MD 12/12/2019 S83.241D Other tear of medial meniscus, current Eulogio Mueller MD injury, right knee, subsequent encounter 12/12/2019 M17.11 Unilateral primary osteoarthritis, right Eulogio Mueller MD knee 12/12/2019 M25.461 Effusion, right knee Eulogio Mueller MD 12/09/2019 S83.241D Other tear of medial meniscus, current Eulogio Mueller MD injury, right knee, subsequent encounter 12/09/2019 M17.11 Unilateral primary osteoarthritis, right Eulogio Mueller MD knee 12/09/2019 M25.461 Effusion, right knee Eulogio Mueller MD 11/12/2019 S83.241D Other tear of medial meniscus, current Shay Trejo MD injury, right knee, subsequent encounter 11/12/2019 M25.461 Effusion, right knee Shay Trejo MD 11/12/2019 M17.11 Unilateral primary osteoarthritis, right Shay Trejo MD knee 10/29/2019 S83.241D Other tear of medial meniscus, current Shay Trejo MD injury, right knee, subsequent encounter 10/29/2019 M25.461 Effusion, right knee Shay Trejo MD 10/29/2019 M17.11 Unilateral primary osteoarthritis, right Shay Trejo MD knee 10/03/2019 S83.241D Other tear of medial meniscus, current Shay Trejo MD injury, right knee, subsequent encounter 09/24/2019 S83.241D Other tear of medial meniscus, current Shay Trejo MD injury, right knee, subsequent encounter 09/23/2019 G47.33 Obstructive sleep apnea (adult) Edie Jeffery NP (pediatric) 09/23/2019 R53.83 Other fatigue Edie Jeffery NP 09/11/2019 S83.241A Other tear of medial meniscus, current Delmy Rowell PA-C injury, right knee, initial encounter 09/11/2019 S83.241A Other tear of medial meniscus, current Shay Trejo MD injury, right knee, initial encounter 09/05/2019 S83.241A Other tear of medial meniscus, current Shay Trejo MD injury, right knee, initial encounter 08/15/2019 M25.461 Effusion, right knee Shay Trejo MD 08/15/2019 S83.241A Other tear of medial meniscus, current Shay Trejo MD injury, right knee, initial encounter 07/31/2019 M25.461 Effusion, right knee Eleno Cummings MD 07/31/2019 M23.91 Unspecified internal derangement of right Eleno Cummings MD knee 07/03/2019 G47.33 Obstructive sleep apnea (adult) Edie Jeffery NP (pediatric) 07/03/2019 R53.83 Other fatigue Edie Jeffery NP Plan of Treatment 12/26/2019 - Eulogio Mueller, MDM17.11 Unilateral primary osteoarthritis, right kneeFollow up:Follow up: As kdrrbqR80.241D Other tear of medial meniscus , current injury, right knee, subsequent pbklskonpG51.461 Effusion, right knee Functional Status Description No Information Available Mental Status Description No Information Available Referrals Description No Information Available
--- OUTSIDE RECORDS SUMMARY | 2020-01-12 10:20 | XMS REPORT | Continuity of Care Document ---
:1960 External Reference #:[id number] Author Name Elliott Felder DO, MPH Address [address] [place] [address], [address] [place] [address] Care Team Providers Name Role Phone Stanley Guidry M.D. - Endocrinology, Care Team Information Expediter Service Order [phone] Diabetes & Metabolism Problems Description No Information Available Social History Type Date Description Comments Sex Unknown Cigarette Use Current Cigarette Smoker 1 Pack Daily ETOH Use Consumes 3 pints of liquor per week Tobacco Use Start: Unknown Patient is a current smoker, smokes every day Smoking Status Reviewed: 12/17/19 Patient is a current smoker, smokes every [...] Available Vital Signs Date Vital Result Comment 12/17/2019 3:20pm BP Systolic 132 mmHg BP Diastolic 80 mmHg Heart Rate 88 /min Respiratory Rate 20 /min Height 64 inches 5'4" Weight 164.00 lb Pain Level 7 Pain Level With Medicine 6 Pain Level Without Medicine 9 BMI (Body Mass Index) 28.1 kg/m2 11/18/2019 3:04pm BP Systolic 120 mmHg BP Diastolic 78 mmHg Heart Rate 74 /min Respiratory Rate 20 /min Height 64 inches 5'4" Weight 164.00 lb Pain Level 3 Pain at this time. Pain Level With Medicine 3 on average with meds Pain Level Without Medicine 9 without meds BMI (Body Mass Index) 28.1 kg/m2 Results Description No Information Available Procedures Date Code Description Status 09/17/2019 24252 Therapeutic, Prophylactic Or Diagnostic Injection Subq/Im Completed 08/22/2019 00269 Therapeutic, Prophylactic Or Diagnostic Injection Subq/Im Completed 07/24/2019 91416 Therapeutic, Prophylactic Or Diagnostic Injection Subq/Im Completed Medical Devices Description No Information Available Encounters Type Date Location Provider Dx Diagnosis Office Visit 11/18/2019 Main Office as Of Elliott Felder DO G89.29 Other chronic pain 3:00p 12/28/13 MPH M54.5 Low back pain M25.561 Pain in right knee M25.551 Pain in right hip M25.552 Pain in left hip Z79.891 intermediate (current) use of opiate analgesic Office Visit 10/21/2019 3:00p Main Office as Elliott Felder G89.29 Other chronic Of 12/28/13 , MPH pain M25.552 Pain in left hip M25.551 Pain in right hip M54.5 Low back pain Z79.891 intermediate (current) use of opiate analgesic Office Visit 09/17/2019 4:00p Main Office as Elliott Felder G89.29 Other chronic Of 12/28/13 DO, MPH pain M54.5 Low back pain M25.552 Pain in left hip M25.551 Pain in right hip M25.561 Pain in right knee Z79.891 intermediate (current) use of opiate analgesic R53.83 Other fatigue Office Visit 08/22/2019 3:45p Main Office as Elliott Felder G89.29 Other chronic Of 12/28/13 DO, MPH pain M25.551 Pain in right hip M25.552 Pain in left hip M54.5 Low back pain R53.83 Other fatigue Z79.891 intermediate designer (current) use of opiate analgesic Office Visit 07/24/2019 10:00a Main Office as Elliott Felder, G89.29 Other chronic Of 12/28/13 DO, MPH pain M54.5 Low back pain M25.551 Pain in right hip M25.552 Pain in left hip M25.561 Pain in right knee R53.83 Other fatigue Z79.891 intermediate designer (current) use of opiate analgesic Office Visit 06/24/2019 9:45a Main Office as Elliott Felder G89.29 Other chronic Of 12/28/13 DO, MPH pain M54.5 Low back pain M25.551 Pain in right hip M25.552 Pain in left hip Z79.891 intermediate (current) use of opiate analgesic Assessments Date Code Description Provider 12/17/2019 G89.29 Other chronic pain Elliott Felder DO, MPH 12/17/2019 M25.561 Pain in right knee FelderElliott francis DO, MPH 12/17/2019 M25.551 Pain in right hip Elliott Felder DO, MPH 12/17/2019 M25.552 Pain in left hip FelderElliott francis DO, MPH 12/17/2019 M54.5 Low back pain Elliott Felder DO, MPH 12/17/2019 Z79.891 intermediate (current) use of opiate analgesic Elliott Felder DO, MPH 12/17/2019 Z13.31 Encounter for screening for depression Elliott Felder DO, MPH 11/18/2019 G89.29 Other chronic pain Elliott Felder DO, MPH 11/18/2019 M54.5 Low back pain Elliott Felder DO, MPH 11/18/2019 M25.561 Pain in right knee Felder, Elliott, DO, MPH 11/18/2019 M25.551 Pain in right hip Felder, Elliott, DO, MPH 11/18/2019 M25.552 Pain in left hip Felder, Elliott, DO, MPH 11/18/2019 Z79.891 intermediate (current) use of opiate analgesic Felder, Elliott , DO, MPH 10/21/2019 G89.29 Other chronic pain Felder, Elliott, DO, MPH 10/21/2019 M25.552 Pain in left hip Felder, Elliott, DO, MPH 10/21/2019 M25.551 Pain in right hip Felder, Elliott, DO, MPH 10/21/2019 M54.5 Low back pain Felder, Elliott, DO, MPH 10/21/2019 Z79.891 intermediate designer (current) use of opiate analgesic Felder, Elliott , DO, MPH 09/17/2019 G89.29 Other chronic pain Felder, Elliott, DO, MPH 09/17/2019 M54.5 Low back pain Felder, Elliott, DO, MPH 09/17/2019 M25.552 Pain in left hip Felder, Elliott, DO, MPH 09/17/2019 M25.551 Pain in right hip Felder, Elliott, DO, MPH 09/17/2019 M25.561 Pain in right knee Felder, Elliott, DO, MPH 09/17/2019 Z79.891 intermediate designer (current) use of opiate analgesic Felder, Elliott [...] fatigue Felder, Elliott, DO, MPH 08/22/2019 Z79.891 intermediate (current) use of opiate analgesic Elliott Felder DO, MPH 07/24/2019 G89.29 Other chronic pain Elliott Felder DO, MPH 07/24/2019 M54.5 Low back pain FelderElliott francis DO, MPH 07/24/2019 M25.551 Pain in right hip FelderElliott francis DO, MPH 07/24/2019 M25.552 Pain in left hip FelderElliott francis DO, MPH 07/24/2019 M25.561 Pain in right knee FelderElliott francis DO, MPH 07/24/2019 R53.83 Other fatigue FelderElliott francis DO, MPH 07/24/2019 Z79.891 intermediate (current) use of opiate analgesic Elliott Felder DO, MPH 06/24/2019 G89.29 Other chronic pain Elliott Felder DO, MPH 06/24/2019 M54.5 Low back pain Elliott Felder DO, MPH 06/24/2019 M25.551 Pain in right hip FelderElliott francis DO, MPH 06/24/2019 M25.552 Pain in left hip Felder, Elliott DO, MPH 06/24/2019 Z79.891 intermediate designer (current) use of opiate analgesic Elliott Felder DO, MPH Plan of Treatment Future Appointment(s):01/16/2020 3:30 pm - Elliott Felder DO, MPH at Main Office as Of 12/28/1400 - Elliott Felder DO, MPHG89.29 Other chronic painComments:Chronic. Symptoms and complaints discussed and reviewed today. No significant changes in physical findings. Continue current medical pain management.M25.561 Pain in right kneeComments:Chronic.Symptoms and complaints discussed and reviewed today. No significant changes in physical findings. Continue current medical pain management.M25.551 Pain in right hipComments: Chronic. Symptoms and complaints discussed and reviewed today. No significant changes in physical findings. Continue current medical pain management.M25.552 Pain in left hipComments:Chronic. Symptoms and complaints discussed and reviewed today. No significant changes in physical findings. Continue current medical pain management.M54.5 Low back painComments:Chronic. Symptoms and complaints discussed and reviewed today.No changes in physical findings. Patient is stable and comfortable when current medical therapy is rendered.Z79.891 intermediate (current) use of opiate analgesicNew Labs:Urine Drug Screen, Ordered: 12/17/19Comments:Urine drug screen sample taken today to monitor opiate use and to monitor use of illicit substances.Will discuss results at next appointment.The following tests were ordered:6 AM, AMPH, ALDO, BON, BUP, CARIS, COCM, ETG, FENT, MCSHSG, OPI, OXY, PCP, [...] controlled substances and is considered standard of care.Z13.31 Encounter for screening for depressionComments:PHQ-9 Depression Screen administered today, results were negative at this time. No positive symptoms on the Patient Health Questionnaire. Will follow up or repeat Screen as necessary in the future Will follow as pertains to their pain. Patient seems to be stable today.AllComments:Continue current medical pain management; injection therapy, osteopathic [...] while maintaining satisfactory side effect profile andminimizing keno terminal operator end-organ damage. Importance of regular nutrition throughout the day discussed.Activity as toleratedContinue with PCP Functional Status Description No Information Available Mental Status Description No Information Available Referrals Description No Information Available
--- OUTSIDE RECORDS SUMMARY | 2020-01-12 10:20 | XMS REPORT | Continuity of Care Document ---
:1960 External Reference #:[id number] Author Name Eulogio Mueller MD (transmitted by agent of provider Nancy Raphael) Address [address] [place] [id number] Care Team Providers Name Role Phone Stanley Guidry MD - Endocrinology, Care Team Information Business Solutions Consultant [phone] Diabetes & Metabolism Problems Active Problems Provider [...] Pack Years - 15 Smoking Status Reviewed: 12/12/19 Former Cigarette Smoker 1 Pack Daily ETOH [...] Medication SIG Qnty Indications Ordering Provider Date No Injection Shay Trejo MD 11/12/2019 Injection Triamcinolone (Kenalog) Shay Trejo MD 11/12/2019 Injection Depomedrol 40MG Edie Robert M.D. 02/22/2017 Injection Immunizations Description No Information Available Vital Signs Date Vital Result Comment 12/12/2019 4:09pm Height 64 inches 5'4" Weight 160.00 lb Heart Rate 60 /min BP Systolic 128 mmHg BP Diastolic 78 mmHg Respiratory Rate 12 /min Body Temperature 98.9 F Pain Level 5 BMI (Body Mass Index) 27.5 kg/m2 12/09/2019 4:25pm Height 64 inches 5'4" Weight 160.00 lb Heart Rate 73 /min BP Systolic 128 mmHg BP Diastolic 60 mmHg Respiratory Rate 20 /min Body Temperature 98.0 F BMI (Body Mass Index) 27.5 kg/m2 Results Description No Information Available Procedures Date Code Description Status 12/12/2019 Inject/Drain Joint/Bursa Major W/O US Completed 11/12/2019 Inj/Aspir Major JT Or Bursa W/ US Completed 09/11/2019 03597 Arthroscopy,Knee,Meniscectomy Medial Or Lateral Completed 09/11/2019 72933 Arthroscopy,Knee,Meniscectomy Medial Or Lateral Completed 06/12/2019 50014 Polysomnography Sleep Staging 4+ Parameters Completed Medical Devices Description No Information Available Encounters Type Date Location Provider Dx Diagnosis Office Visit 09/23/2019 Pulmonology And Edie G47.33 Obstructive sleep 8:00a [facility] ap[facility] (adult) [facility] (pediatric) R53.83 Other fatigue Office Visit 09/05/2019 3:15p [facility] Shay Trejo, S83.241A Oth tear of at Viral RICE medial meniscus, current injury, r knee, init Office Visit 08/15/2019 8:30a [facility] Shay Trejo M25.461 Effusion, right at Viral RICE knee S83.241A Oth tear of medial meniscus, current injury, r knee, init Office Visit 07/[facility]2019 [facility] M25.461 Effusion , right at Maurice Cummings MD knee M23.91 Unspecified internal derangement of right knee Office Visit 07/03/2019 Pulmonology Filiberto Irizarry G47.33 Obstructive sleep 11:00a [facility] apnea (adult) [facility] (pediatric) R53.83 Other fatigue Assessments Date Code Description Provider 12/12/2019 S83.241D Other tear of medial meniscus, [...] 07/03/2019 R53.83 Other fatigue Edie Jeffery NP 06/12/2019 G47.33 Obstructive sleep apnea (adult) Savannah Muñoz MD (pediatric) Plan of Treatment Future Appointment(s):12/19/2019 3:30 pm - Eulogio Mueller MD at [facility] at Slqkjk3112/26/2019 3:00 pm - Eulogio Mueller MD at [facility] at Iebldz5312/12/2019 - Eulogio Mueller, MDS83.241D Other tear of medial meniscus, current injury, right knee, subsequent encounterFollow up: Follow up: 1 weekM17.11 Unilateral primary osteoarthritis, right kneeM25.461 Effusion, right knee Functional Status Description No Information Available Mental Status Description No Information Available Referrals Description No Information Available
--- OUTSIDE RECORDS SUMMARY | 2020-01-12 10:20 | XMS REPORT | Continuity of Care Document ---
:1960 External Reference #:[id number] Author Name Eulogio Mueller MD (transmitted by agent of provider dEie Rossi ) Address [address] [place] [phone] Care Team Providers Name Role Phone Stanley Guidry MD - Endocrinology, Care Team Information Hostess Cashier [phone] Diabetes & Metabolism Problems Active Problems Provider [...] Pack Years - 15 Smoking Status Reviewed: 12/09/19 Former Cigarette Smoker 1 Pack Daily ETOH [...] Available Vital Signs Date Vital Result Comment 12/09/2019 4:25pm Height 64 inches 5'4" Weight 160.00 lb Heart Rate 73 /min BP Systolic 128 mmHg BP Diastolic 60 mmHg Respiratory Rate 20 /min Body Temperature 98.0 F BMI (Body Mass Index) 27.5 kg/m2 11/12/2019 3:06pm Height 64 inches 5'4" Weight 166.00 lb Heart Rate 79 /min Respiratory Rate 14 /min Body Temperature 98.2 F Pain Level 4 BMI (Body Mass Index) 28.5 kg/m2 Results Description No Information Available Procedures Date Code Description Status 11/12/2019 90629 Inj/Aspir Major JT Or Bursa W/ US Completed 09/11/2019 55546 Arthroscopy,Knee,Meniscectomy Medial Or Lateral Completed 09/11/2019 75783 Arthroscopy,Knee,Meniscectomy Medial Or Lateral Completed 06/12/2019 39079 Polysomnography Sleep Staging 4+ Parameters Completed Medical Devices Description No Information Available Encounters Type Date Location Provider Dx Diagnosis Office Visit 09/23/2019 [facility] G47.33 Obstructive sleep 8:00a [facility] (adult) [facility] (pediatric) R53.83 Other fatigue Office Visit 09/05/2019 3:15p [facility] Shay Trejo, S83.241A Oth tear of at Viral RICE medial meniscus, current injury, r knee, init Office Visit 08/15/2019 8:30a [facility] Shay Trejo, M25.461 Effusion, right at [place] knee S83.241A Oth tear of medial meniscus, current injury, r knee, init Office Visit 07/31/2019 11:30a [facility] Campos M25.461 Effusion , right at Maurice Cummings MD knee M23.91 Unspecified internal derangement of right knee Office Visit 07/03/2019 Pulmonology Filiberto Irizarry G47.33 Obstructive sleep 11:00a [facility] apnea (adult) [facility] (pediatric) R53.83 Other fatigue Assessments Date Code Description Provider 12/09/2019 S83.241D Other tear of medial meniscus, [...] 10/29/2019 M17.11 Unilateral primary osteoarthritis, right Shay Terjo MD knee 10/03/2019 S83.241D Other tear of [...] Muñoz MD (pediatric) Plan of Treatment Future Appointment(s):01/09/2020 3:15 pm - Shay Trejo MD at [facility] at Khnrxm8901/02/2020 3:00 pm - Shay Trejo MD at [facility] at Toplvk3612/26/2019 3:00 pm - Shay Trejo MD at [facility] at Wnrmod3512/16/2019 11:30 am - Edie Jeffeyr NP at [facility]12/09/2019 - Eulogio Mueller, MDS83.241D Other tear of medial meniscus, current injury, right knee, subsequent encounterFollow up:Follow up: for visco cdlhfgazbF16.11 Unilateral primary osteoarthritis, right kneeM25.461 Effusion, right knee Functional Status Description No Information Available Mental Status Description No Information Available Referrals Description No Information Available
--- OUTSIDE RECORDS SUMMARY | 2020-01-12 10:20 | XMS REPORT | Continuity of Care Document ---
:1960 External Reference #:[id number] Author Name Eulogio Mueller MD (transmitted by agent of provider Sheela Pagan) Address [address] [place] [id number] Care Team Providers Name Role Phone Stanley Guidry MD - Endocrinology, Care Team Information Log Rafter Diabetes & Metabolism Problems Active Problems Provider [...] Pack Years - 15 Smoking Status Reviewed: 12/19/19 Former Cigarette Smoker 1 Pack Daily ETOH [...] [place] 07/27/2016 0.5mg Tablets By Mouth Chun Heard MD Day Synthroid 1 by mouth Unknown 125mcg [...] Date Injection Hyaluronan Or Eulogio Mueller MD 12/12/2019 Derivative, Euflexxa Per Dose Injection No Injection Shay Trejo MD 11/12/2019 Injection Triamcinolone (Kenalog) Shay Trejo MD 11/12/2019 Injection Depomedrol 40MG Edie Barahona M.D. 02/22/2017 Injection Immunizations Description No Information Available Vital Signs Date Vital Result Comment 12/19/2019 3:57pm Height 64 inches 5'4" Heart Rate 70 /min BP Systolic 118 mmHg BP Diastolic 70 mmHg Respiratory Rate 18 /min Body Temperature 98.0 F Pain Level 4 12/12/2019 4:09pm Height 64 inches 5'4" Weight 160.00 lb Heart Rate 60 /min BP Systolic 128 mmHg BP Diastolic 78 mmHg Respiratory Rate 12 /min Body Temperature 98.9 F Pain Level 5 BMI (Body Mass Index) 27.5 kg/m2 Results Description No Information Available Procedures Date Code Description Status 12/19/2019 Inject/Drain Joint/Bursa Major W/O US Completed 12/12/2019 Inject/Drain Joint/Bursa Major W/O US Completed 11/12/2019 18133 Inj/Aspir Major JT Or Bursa W/ US Completed 09/11/2019 45244 Arthroscopy,Knee,Meniscectomy Medial Or Lateral Completed 09/11/2019 71645 Arthroscopy,Knee,Meniscectomy Medial Or Lateral Completed Medical Devices Description No Information Available Encounters Type Date Location Provider Dx Diagnosis Office Visit 09/23/2019 [facility] G47.33 Obstructive sleep 8:00a [facility] apnea (adult) [facility] (pediatric) R53.83 Other fatigue Office Visit 09/05/2019 3:15p [facility] Shay Trejo, S83.241A Oth tear of at Viral RICE medial meniscus, current injury, r knee, init Office Visit 08/15/2019 8[facility]a [facility] M25.461 Effusion, right at Viral RICE knee S83.241A Oth tear of medial meniscus, current injury, r knee, init Office Visit 07/31/2019 11:30a [facility] Eleno Campos M25.461 Effusion , right at Maurice Cummings MD knee M23.91 Unspecified internal derangement of right knee Office Visit 07/03/2019 [facility] G47.33 Obstructive sleep 11:00a [facility] apnea (adult) [facility] (pediatric) R53.83 Other fatigue Assessments Date Code Description Provider 12/19/2019 S83.241D Other tear of medial meniscus, [...] fatigue Edie Jeffery NP Plan of Treatment Future Appointment(s):12/26/2019 3:30 pm - Eulogio Mueller MD at [facility]12/19/2019 - Eulogio Mueller, MDS83.241D Other tear of medial meniscus, current injury, right knee, subsequent encounterFollow up: Follow up: 1 weekM17.11 Unilateral primary osteoarthritis, right kneeM25.461 Effusion, right knee Functional Status Description No Information Available Mental Status Description No Information Available Referrals Description No Information Available
[2020-01-12 11:06] VITALS: BP 121/60
--- NOTE | 2020-01-12 12:06 | UC ---
Throat Pain/Nasal Arnoldo HPI - HPI Summary HPI Summary: 59yo female presenting with sore throat, PND, and intermittent AREVALO x2 days. States it hurts to swallow. Denies nasal congestion and cough. Denies fever and chills. 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 - History of Current Complaint Chief Complaint: UCRespiratory Stated Complaint: SORE THROAT HEADACHE Hx Obtained From: Patient Pain Intensity: 6 Pain Scale Used: 0-10 Numeric - Allergies/Home Medications Allergies/Adverse Reactions: Allergies Allergy/AdvReac Type Severity Reaction Status Date / Time No Known Allergies Allergy Verified 01/12/20 11:06 Home Medications: Home Medications Chlorpheniramine/Dextromethorp [[employer]] 1 liq PO BEDTIME [History Confirmed 01/12/20] Oxycodone Myristate [Xtampza ER] 36 mg PO BID 01/12/20 [History Confirmed ] PMH/Surg Hx/FS Hx/Imm Hx - Surgical History Surgical History: Yes Surgery Procedure, Year, and Place: RIGHT HIP REPLACEMENT 2008. LABRUM REPAIR LEFT SHOULDER 2002. C SECTION 1984. HYSTERECTOMY 1998. ARTHROSCOPIC HIP SURGERY RIGHT 2007. GANGLION CYST RIGHT HAND 1990. D & C 1985. WISDOM TEETH - Family History Known Family History: Positive: Cardiac Disease, Hypertension - Social History Alcohol Use: Rare Alcohol Amount: 1 per week Substance Use Type: None Smoking Status (MU): Former Smoker Type: Cigarettes Amount Used/How Often: 1/2 ppd Have You Smoked in the Last Year: Yes When Did the Patient Quit Smoking/Using Tobacco: 1 week ago - Immunization History Most Recent Influenza Vaccination: yes Review of Systems All Other Systems Reviewed And Are Negative: Yes Constitutional: Positive: Negative ENT: Positive: Sore Throat, Nasal Discharge - PND Respiratory: Positive: Negative Cardiovascular: Positive: Negative Gastrointestinal: Positive: Negative Musculoskeletal: Negative: Myalgia Neurological/Mental Status: Positive: Headache Physical Exam - Summary Physical Exam Summary: Vital Signs Reviewed: Yes A+Ox3, no distress Eyes: Conjunctiva Clear ENT: Hearing grossly normal, TM x 2 clear, moist, uvula midline, no exudate, + pharyngeal erythema, no tonsillar swelling Neck: Positive: Supple Respiratory: Positive: No respiratory distress, No accessory muscle use + CTA throughout no w/r Cardiovascular: RRR nl s1, s2 no m/r Musculoskeletal Exam: JOHNSON x 4 without difficulty Neurological: Positive: Alert Psychological: Positive: age appropriate behavior Skin: Positive: no rash, no ecchymosis Vital Signs: Initial Vital Signs Temp 98.3 F 01/12/20 11:01 Pulse 63 01/12/20 11:01 Resp 18 01/12/20 11:01 BP 121/60 01/12/20 11:01 Pulse Ox 99 01/12/20 11:01 Throat Pain/Nasal Course/Dx - Course Course Of Treatment: Negative rapid strep. I educated on viral pharyngitis and symptomatic treatment. Instructed to follow up with pcp if symptoms persist or worsen. Patient voiced understanding and agreed with treatment plan. - Differential Dx/Diagnosis Provider Diagnosis: Pharyngitis Discharge ED - Sign-Out/Discharge Documenting (check all that apply): Patient Departure All imaging exams completed and their final reports reviewed: No Studies - Discharge Plan Condition: Stable Disposition: HOME Patient Education Materials: Pharyngitis (ED) Referrals: Stanley Guidry MD [Primary Care Provider] - If Needed Additional Instructions: Your strep test was negative today. You may take ibuprofen and/or tylenol as directed for fever and pain relief. You may use over the counter throat sprays or lozenges for symptomatic relief. Get plenty of rest and fluids. Follow up with your primary care provider if symptoms do not improve within 7 days. - Billing Disposition and Condition Condition: STABLE Disposition: Home
== END 2020-01-12 12:42 | disposition home or self-care (01) ==
LOC: UCCORT 10:04
DX: J02.9 Acute pharyngitis, unspecified (principal); R09.81 Nasal congestion; R09.82 Postnasal drip; Z87.891 Personal history of nicotine dependence; Z96.641 Presence of right artificial hip joint
CPT/HCPCS: 87651; 99212; G0463

== ENCOUNTER 2020-01-16 10:36 | Emergency (ER) | payer BC ==
[2020-01-16 13:06] VITALS: BP 110/66
--- NOTE | 2020-01-16 13:10 | UC ---
Throat Pain/Nasal Arnoldo HPI - HPI Summary HPI Summary: "Pretty constant" headache, PND, "my tongue and my throat are coated", and constant sore throat aggrevated by swallowing and worse at night for six days. No known fever. Negative rapid strep test here four days ago. Ibuprofen "really hasn't made any difference." Drinking warm fluids sore throat. - History of Current Complaint Chief Complaint: UCGeneralIllness Stated Complaint: SORE THROAT Time Seen by Provider: 01/16/20 12:53 Hx Obtained From: Patient ?: No Onset/Duration: Sudden Onset, Lasting Days Severity: Severe Pain Intensity: 7 Associated Signs & Symptoms: Positive: Dysphagia, Sinus Discomfort - Allergies/Home Medications Allergies/Adverse Reactions: Allergies Allergy/AdvReac Type Severity Reaction Status Date / Time No Known Allergies Allergy Verified 01/16/20 13:02 Home Medications: Home Medications Estradiol TAB(NF) 1 mg PO QAM 09/21/17 [History Confirmed 01/16/20] HydroCODONE/Acetamin 10/325 NF [[place] 10/325 (NF)] 1 tab PO Q6H 09/21/17 [ History Confirmed 01/16/20] Levothyroxine TAB* [Synthroid 125 MCG TAB*] 125 mcg PO QAM 09/21/17 [History Confirmed 01/16/20] Valproic Acid CAP(*) [Depakene CAP(*)] 250 mg PO BID 02/02/19 [History Confirmed 01/16/20] Multivit with Calcium,Iron,Min [Multiple Vitamins For Women] 1 each PO QAM 07/23 [History Confirmed 01/16/20] Chlorpheniramine/Dextromethorp [[employer]] 1 liq PO BEDTIME [History Confirmed 01/16/20] Oxycodone Myristate [Xtampza ER] 36 mg PO BID 01/12/20 [History Confirmed ] Ibuprofen TAB* [Advil TAB*] 400 mg PO Q6H PRN 01/16/20 [History Confirmed ] Nystatin SUSPENSION ORAL SYR* 400,000 units PO QID #120 ml 01/16/20 [Rx] PMH/Surg Hx/FS Hx/Imm Hx Previously Healthy: Yes - Surgical History Surgical History: Yes Surgery Procedure, Year, and Place: RIGHT HIP REPLACEMENT 2008. LABRUM REPAIR LEFT SHOULDER 2002. C SECTION 1984. HYSTERECTOMY 1998. ARTHROSCOPIC HIP SURGERY RIGHT 2007. GANGLION CYST RIGHT HAND 1990. D & C 1985. WISDOM TEETH - Family History Known Family History: Positive: Cardiac Disease, Hypertension - Social History Alcohol Use: Rare Alcohol Amount: 1 per week Substance Use Type: Synthetic Drugs Smoking Status (MU): Former Smoker Type: Cigarettes Amount Used/How Often: 1/2 PPD Length of Time of Smoking/Using Tobacco: On and Off Since Age 19 Have You Smoked in the Last Year: Yes When Did the Patient Quit Smoking/Using Tobacco: 06/2019 - Immunization History Most Recent Influenza Vaccination: yes Review of Systems All Other Systems Reviewed And Are Negative: Yes ENT: Positive: Sore Throat Respiratory: Positive: Cough Neurological/Mental Status: Positive: Headache Is Patient Immunocompromised?: No Physical Exam Triage Information Reviewed: Yes Appearance: Well-Nourished, Ill-Appearing, Pain Distress Vital Signs: Initial Vital Signs Temp 98.4 F 01/16/20 12:59 Pulse 66 01/16/20 12:59 Resp 16 01/16/20 12:59 BP 110/66 01/16/20 12:59 Pulse Ox 99 01/16/20 12:59 Vital Signs Reviewed: Yes Eye Exam: Normal ENT: Positive: Pharyngeal erythema - with patchy white spots and coated tough Dental Exam: Normal Neck exam: Normal Respiratory Exam: Normal Cardiovascular Exam: Normal Abdominal Exam: Normal Skin Exam: Normal Throat Pain/Nasal Course/Dx - Course Course Of Treatment: hx obtained, exam performed ,meds reviewed, - Differential Dx/Diagnosis Differential Diagnosis/HQI/PQRI: Mononucleosis, Pharyngitis, Sinusitis Provider Diagnosis: Oral porfirio Discharge ED - Sign-Out/Discharge Documenting (check all that apply): Patient Departure All imaging exams completed and their final reports reviewed: No Studies - Discharge Plan Condition: Stable Disposition: HOME Prescriptions: Nystatin SUSPENSION ORAL SYR* 400,000 units PO QID #120 ml Patient Education Materials: Oral Candidiasis (ED) Referrals: Stanley Guidry MD [Primary Care Provider] - Additional Instructions: 1. take the medication as prescribed. 2. coconut oil and salt water gargles. 3. if not improving with the treatement or if it returns once treatement has been completed follow up with Dr Guidry. - Billing Disposition and Condition Condition: STABLE Disposition: Home
== END 2020-01-16 13:30 | disposition home or self-care (01) ==
LOC: UCCORT 10:36
DX: B37.0 Candidal stomatitis (principal); J02.9 Acute pharyngitis, unspecified; R05 Cough; R51 Headache; Z87.891 Personal history of nicotine dependence; Z96.641 Presence of right artificial hip joint
CPT/HCPCS: 99212; G0463